=== PATIENT | male | born 1975 | race Two or more races ===

== ENCOUNTER 2017-09-19 11:24 | Emergency (ER) | payer BC, OTHER ==
[2017-09-19 11:44] VITALS: BP 139/91; PULSE 92; TEMP 99.3; BMI 37.0
--- NOTE | 2017-09-19 12:07 | PDOC ---
History of Present Illness - General Chief Complaint: Headache Stated Complaint: HEADACHE Time Seen by Provider: 09/19/17 11:25 History Source: Patient (Patient walked in complaining of headaches since he finished his BP medication 3 days ago. The new one will arrive in a couple of days) Exam Limitations: No Limitations - History of Present Illness Timing/Duration: reports: 24 hours Severity: Yes: moderate Associated Symptoms: reports: denies symptoms Past History - Travel Traveled outside of the country in the last 30 days: No Close contact w/someone who was outside of country & ill: No - Past Medical History Allergies/Adverse Reactions: Allergies Allergy/AdvReac Type Severity Reaction Status Date / Time No Known Allergies Allergy Verified 09/19/17 11:27 Home Medications: Ambulatory Orders Acetaminophen [Tylenol -] 1,000 mg PO ONCE PRN 09/19/17 Lisinopril/Hydrochlorothiazide [Lisinopril-Hctz 20-12.5 mg Tab] 1 each PO AM # 10 tablet 09/19/17 Lisinopril/Hydrochlorothiazide [Lisinopril-Hctz 20-12.5 mg Tab] 1 each PO DAILY 09/19/17 COPD: No HTN: Yes Other medical history: migraine - Suicide/Smoking/Psychosocial Hx Smoking History: Never smoked Have you smoked in the past 12 months: No Information on smoking cessation initiated: No Hx Alcohol Use: No Drug/Substance Use Hx: No Substance Use Type: None Review of Systems - Review of Systems Able to Perform ROS?: Yes Is the patient limited Kiswahili proficient: Yes Constitutional: Yes: See HPI HEENTM: Yes: See HPI Respiratory: No: Symptoms reported, See HPI, Cough, Orthopnea, Shortness of Breath, SOB with Exertion, SOB at Rest, Stridor, Wheezing, Productive cough, Hemoptysis, Other Cardiac (ROS): No: Symptoms Reported, See HPI, Chest Pain, Edema, Irregular Heart Rate, Lightheadedness, Palpitations, Syncope, Chest Tightness, Other ABD/GI: No: Symptoms Reported, See HPI, Abdominal Distended, Abd. Pain w/ defecation, Blood Streaked Bowels, Constipated, Diarrhea, Difficulty Swallowing , Nausea, Poor Appetite, Poor Fluid Intake, Rectal Bleeding, Vomiting, Indigestion, Abdominal cramping, Tarry Stools, Other Neurological: Yes: Symptoms reported, See HPI All Other Systems: Reviewed and Negative *Physical Exam - Vital Signs Last Vital Signs Temp Pulse Resp BP Pulse Ox 99.3 F 92 H 20 139/91 99 09/19/17 11:24 09/19/17 11:24 09/19/17 11:24 09/19/17 11:24 09/19/17 11:24 - Physical Exam General Appearance: Yes: Nourished, Appropriately Dressed, Moderate Distress HEENT: positive: MAXIMILIANO, Normal Voice Neck: positive: Trachea midline, Supple Respiratory/Chest: positive: Lungs Clear, Normal Breath Sounds Cardiovascular: positive: Regular Rate, S1, S2 Lymphatic: negative: Adenopathy Musculoskeletal: positive: Normal Inspection Extremity: positive: Normal Capillary Refill Integumentary: positive: Normal Color, Dry Neurologic: positive: cardiovascular surgeon II-XII NML intact, Fully Oriented, Alert, Normal Mood/ Affect Medical Decision Making - Medical Decision Making Patient seen imediately from arrival, working diagnosis: headache, hypertension non compliance with medication Patient received medication, improvement of symptoms CT head = negative 09/21/17 11:57 09/21/17 11:59 *DC/Admit/Observation/Transfer Diagnosis at time of Disposition: Headache Qualifiers: Headache type: unspecified Headache chronicity pattern: unspecified pattern Intractability: not intractable Qualified Code(s): R51 - Headache Hypertension Qualifiers: Hypertension type: unspecified Qualified Code(s): I10 - Essential (primary) hypertension - Discharge Dispostion Disposition: HOME Condition at time of disposition: Improved - Prescriptions Prescriptions: Lisinopril/Hydrochlorothiazide [Lisinopril-Hctz 20-12.5 mg Tab] 1 each PO AM # 10 tablet - Referrals - Patient Instructions Printed Discharge Instructions: High Blood Pressure, DI for Headache Additional Instructions: Take your medication on daily basis - Post Discharge Activity Forms/Work/School Notes: Back to Work
[2017-09-19] MEDS ORDERED: LISINOPRIL 20 MG TABLET (FP) PO SCH (12:15)
[2017-09-19] MEDS ORDERED: LISINOPRIL 5 MG TABLET (FP) ONE (12:18)
[2017-09-19] MEDS ORDERED: ACETAMINOPHEN 500 MG TABLET (FP) PO ONE (12:58)
[2017-09-19] MEDS ORDERED: ACETAMINOPHEN 325 MG TABLET (FP) ONE (13:01)
[2017-09-19] MEDS ORDERED: IBUPROFEN 600 MG TABLET (FP) PO ONE ×2 (15:48)
== END 2017-09-19 15:52 | disposition home or self-care (01) ==
LOC: FER 11:24
DX: R51 Headache (principal); I10 Essential (primary) hypertension
CPT/HCPCS: 70450-TC; 99281-25

== ENCOUNTER 2019-08-06 14:37 | Emergency (ER) | payer OTHER, BC ==
[2019-08-06 14:44] VITALS: BMI 36.6
[2019-08-06 15:02] VITALS: BP 123/82; PULSE 68; TEMP 98.4
--- NOTE | 2019-08-06 15:02 | PDOC ---
History of Present Illness - General Chief Complaint: Rash Stated Complaint: CLOROX SPILT ON FINGER Time Seen by Provider: 08/06/19 14:46 History Source: Patient Exam Limitations: No Limitations - History of Present Illness Initial Comments: 08/06/19 14:57 HPI 44-year-old male with history of hypertension presenting with chemical burn to his left dorsal aspect of thumb. 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 He immediately washed it with soap and water copiously, applied bacitracin and bandaid. Patient denies any pain or swelling, redness, fevers, discharge, wounds or laceration, paresthesias , numbness or tingling/weakness. Review of Systems Constitutional: no fevers or chills. MUSCULOSKELETAL: No joint pain and swelling. No muscle pain/arthralgias. Back: no back pain SKIN: no redness or skin changes, no discharge, no rash. No wounds. Hematologic: no easy bruising/bleeding. NEUROLOGIC: No weakness, numbness or tingling. Allergic/Immunologic: no allergies All other systems reviewed and negative, or as documented in HPI. Laceration physical template General: NAD, well appearing Vascular: 2+ radialis pulses symmetric and equal. Neuro: distal goggles assembler strength 5/5. sensation grossly intact in median/radial/ ulnar distribution. MSK: soft compartments, Cap refill <2 sec. 2+ radialis pulses bilaterally and symmetric. left thumb IP joint intact, 5/5 strength against resistance. no joint tenderness. FROM. no wound or skin discoloration. Skin: color normal color, warm and well perfused. no skin discoloration, no wound or drainage. 08/06/19 15:02 Past History - Past Medical History Allergies/Adverse Reactions: Allergies Allergy/AdvReac Type Severity Reaction Status Date / Time No Known Allergies Allergy Verified 08/06/19 14:38 Home Medications: Ambulatory Orders Lisinopril/Hydrochlorothiazide [Lisinopril-Hctz 20-12.5 mg Tab] 1 each PO AM # 10 tablet 09/19/17 COPD: No HTN: Yes - Psycho Social/Smoking Cessation Hx Smoking History: Never smoked Have you smoked in the past 12 months: No Hx Alcohol Use: Yes (OCASIONAL) Drug/Substance Use Hx: No Substance Use Type: None *Physical Exam - Vital Signs Last Vital Signs Temp Pulse Resp BP Pulse Ox 98.4 F 68 16 123/82 97 08/06/19 14:38 08/06/19 14:38 08/06/19 14:38 08/06/19 14:38 08/06/19 14:38 Medical Decision Making - Medical Decision Making 08/06/19 15:04 Vital Signs Temp Pulse Resp BP Pulse Ox 98.4 F 68 16 123/82 97 08/06/19 14:38 08/06/19 14:38 08/06/19 14:38 08/06/19 14:38 08/06/19 14:38 Vital signs reviewed within normal limits. Patient presents with a minor chemical burn to his left thumb, no skin lesions or discoloration, neurovascularly intact, not complaining of any pain. Area was carefully evaluated and no findings to suspect infection or significant chemical burn. Patient also had a drop of exposure to Clorox which is diluted alkali substance/ sodium hypochlorite. Will discharge patient in stable condition, wound care instructions, burn care instructions were advised. 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 Monitor for signs of infection including fever/chills, skin changes, wounds, worsening burn , neurologic changes/weakness/paresthesias. Discharge - Discharge Information Problems reviewed: Yes Clinical Impression/Diagnosis: Chemical burn of finger Qualifiers: Encounter type: initial encounter Laterality: left Qualified Code(s): T23.422A - Corrosion of unspecified degree of single left finger (nail) except thumb, initial encounter Condition: Stable Disposition: HOME - Admission No - Follow up/Referral - Patient Discharge Instructions Patient Printed Discharge Instructions: How to Take Care of a Burn, Minor [place] (Alternative Therapy) Additional Instructions: Wound dressed with topical Bacitracin and sterile gauze/bandaid. Follow up with your primary care doctor within 48-72 hours for a wound check. Apply bacitracin or neosporin twice a day with warm soaks and cover with gauze/dressings. Return to ED for suture removal 7 days. Return to the ED for any worsening pain, redness, streaking (red lines), swelling, fever or chills. Keep the wound clean and as dry as possible. Do not immerse or soak the wound in water. This means no swimming, washing dishes (unless thick rubber gloves are used), baths, or hot tubs until the stitches are removed or after about two weeks if absorbable suture material was used. Leave original bandages on the wound for the first 24 hours. After this time, showering or rinsing is recommended, rather than bathing. the first day, remove old bandages and gently cleanse the wound with soap and water. - Post Discharge Activity
== END 2019-08-06 15:06 | disposition home or self-care (01) ==
LOC: FER 14:37
DX: T23.422A Corrosion of unspecified degree of single left finger (nail) except thumb, initial encounter (principal); I10 Essential (primary) hypertension; T54.91XA Toxic effect of unspecified corrosive substance, accidental (unintentional), initial encounter; Y92.89 Other specified places as the place of occurrence of the external cause
CPT/HCPCS: 99281-25

== ENCOUNTER 2019-11-08 13:30 | Emergency (ER) | payer OTHER, BC ==
--- NOTE | 2019-11-08 13:51 | PDOC ---
Attending Attestation - Resident Resident Name: Christian Banks - HPI HPI: 11/08/19 15:23 Pt presents to the ED after a "drop" of 1:10 bleach solution splashed onto his eyelid. Patient washed his eyes in the eyewash station and now states that his eyes feel slightly irritated but has no visual complaints. - Physicial Exam PE: 11/08/19 15:27 Agree with resident exam. Patient is alert and oriented and in no acute distress. Eye exam: 20/25 visual acuity b/l. EOMI. 11/08/19 15:28 11/08/19 15:42 - Medical Decision Making 11/08/19 16:02 Pt presents to the ED after minimal eye exposure to cleaning fluid with bleach. Eyes irrigated. Visual acuity is intact. Will discharge home with instructions to return to the ED for worsening symptoms.
--- NOTE | 2019-11-08 13:53 | PDOC ---
History of Present Illness - General Chief Complaint: Eye Problem Stated Complaint: BLEACH SPILL TO LEFT EYE Time Seen by Provider: 11/08/19 13:51 History Source: Patient Exam Limitations: No Limitations - History of Present Illness Initial Comments: 44 yo M with no pmhx presents to the emergency department after bleach contact to the left eye at approximately 1:30 pm. Per the patient, he states he was cleaning the ultrasound lobby with microkill bleach wipes, which are 1:10 bleach solution (0.65% sodium hypochlorite), when he felt a droplet land on his upper eyelid. He denies feeling it hit his eye. Per the patient, he states he came over to the emergency department and used the eye wash station and is now concerned if he has bleach in contact with his eye. He denies eye pain, visual disturbance, and blurred vision. Denies headaches, nausea, vomiting, and abdominal pain. Past History - Past Medical History Allergies/Adverse Reactions: Allergies Allergy/AdvReac Type Severity Reaction Status Date / Time No Known Allergies Allergy Verified 11/08/19 13:47 Home Medications: Ambulatory Orders Lisinopril/Hydrochlorothiazide [Lisinopril-Hctz 20-12.5 mg Tab] 1 each PO AM #10 tablet 09/19/17 COPD: No HTN: Yes - Psycho Social/Smoking Cessation Hx Smoking History: Never smoked Have you smoked in the past 12 months: No Hx Alcohol Use: No Drug/Substance Use Hx: No Substance Use Type: None Review of Systems - Review of Systems Able to Perform ROS?: Yes Is the patient limited Bermudian proficient: No Constitutional: No: Chills, Diaphoresis, Fever, Weakness HEENTM: No: Eye Pain, Ear Pain, Nose Pain, Throat Pain, Mouth Pain Respiratory: No: Cough, Shortness of Breath, Hemoptysis Cardiac (ROS): No: Chest Pain, Lightheadedness, Palpitations, Chest Tightness ABD/GI: No: Constipated, Diarrhea, Nausea, Rectal Bleeding, Vomiting, Tarry Stools : No: Burning, Dysuria, Hematuria Musculoskeletal: No: Back Pain, Joint Pain, Neck Pain Integumentary: No: Bruising, Erythema, Rash Neurological: No: Headache, Numbness, Tingling Psychiatric: No: Change in Appetite Endocrine: No: Unexplained Weight Loss *Physical Exam - Physical Exam General Appearance: Yes: Nourished, Appropriately Dressed. No: Apparent Distress, Intoxicated, Obese HEENT: positive: EOMI, MAXIMILIANO, Normal Voice, Symmetrical, Pharynx Normal, Hearing Grossly Normal. negative: Pale Conjunctivae, Scleral Icterus (R), Scleral Icterus (L), Muffled/Hoarse voice, Pharyngeal Erythema, Tonsillar Exudate, Tonsillar Erythema, Nasal Congestion, Rhinorrhea, Sinus Tenderness, Excessive drooling Neck: positive: Trachea midline, Supple. negative: Tender, Lymphadenopathy (R), Lymphadenopathy (L), Tender lateral, Tender midline Respiratory/Chest: positive: Lungs Clear, Normal Breath Sounds. negative: Chest Tender, Respiratory Distress, Accessory Muscle Use, Rales, Rhonchi, Stridor Cardiovascular: positive: Regular Rhythm, Regular Rate, S1, S2. negative: Systolic Murmur Gastrointestinal/Abdominal: positive: Normal Bowel Sounds, Flat, Soft. negative: Tender, Distended, Guarding, Rebound, Tenderness Lymphatic: negative: Adenopathy Musculoskeletal: positive: Normal Inspection. negative: CVA Tenderness, Vertebral Tenderness Extremity: positive: Normal Capillary Refill, Normal Inspection, Normal Range of Motion. negative: Tender Integumentary: positive: Normal Color, Dry, Warm Neurologic: positive: de alcholizer II-XII NML intact, Fully Oriented, Alert, Normal Mood/Affect Medical Decision Making - Medical Decision Making 44 yo M with no pmhx presents to the emergency department after bleach contact to the left eye at approximately 1:30 pm. Initial vitals: Initial Vital Signs Temp Pulse Resp BP Pulse Ox 98.1 F 101 H 16 118/71 100 11/08/19 13:30 11/08/19 13:30 11/08/19 13:30 11/08/19 13:30 11/08/19 13:30 Work up: patient has no pain or tenderness to the left eye on visual inspection, no abnormalities noted patient denies pain in the eyes. 20/25 vision noted bilaterally pulse was re-assessed and shown to be 88 bpm. Patient to be discharged with PMD follow up. Discharge - Discharge Information Problems reviewed: Yes Clinical Impression/Diagnosis: Irritation of eyelid Condition: Good Disposition: HOME - Admission No - Follow up/Referral Referrals: Tommy Grider MD [Primary Care Provider] - - Patient Discharge Instructions Patient Printed Discharge Instructions: DI for Chemical Eye Burn Additional Instructions: You were seen in the emergency department for the evaluation of your eye. Please follow up with your primary medical doctor within 1 week after discharge for follow up care and management. Please return to the emergency department if you have worsening symptoms or new concerning symptoms such as inability to see or decreased vision. Thank you. - Post Discharge Activity
[2019-11-08 14:01] VITALS: BP 118/71; PULSE 101; TEMP 98.1; BMI 37.4
== END 2019-11-08 14:52 | disposition home or self-care (01) ==
LOC: FER 13:30
DX: H01.9 Unspecified inflammation of eyelid (principal); I10 Essential (primary) hypertension
CPT/HCPCS: 99281-25

== ENCOUNTER 2022-01-24 08:05 | Emergency (ER) | payer BC ==
[2022-01-24 08:19] VITALS: TEMP 99; BMI 38.2
[2022-01-24 09:14] LABS: HEMATOCRIT 44.4 % (35.4-49); HEMOGLOBIN 15.8 G/dL (11.7-16.9); MCH 30.2 pg (25.7-33.7); MCHC 35.6 g/dl (32.0-35.9); MEAN CELL VOLUME 84.8 fl (80-96); MEAN PLT VOLUME 9.7 fl (7.5-11.1); PLATELET COUNT 218.6 10^3/uL (134-434); RBC 5.23 10^6/uL (4.00-5.60); RDW 13.8 % (11.9-15.9); WHITE BLOOD COUNT 9.2 10^3/uL (4.0-10.8)
[2022-01-24 11:15] LABS: ALBUMIN 3.5 g/dl (3.4-5.0); BLOOD UREA NITROGEN 20.5 mg/dL (7-18); CALCIUM 9.1 mg/dL (8.5-10.1)
[2022-01-24 11:18] LABS: CREATININE 0.9 mg/dL (0.55-1.3)
[2022-01-24 11:20] LABS: BILIRUBIN,TOTAL 0.9 mg/dL (0.2-1); TOT PROT 7.3 g/dl (6.4-8.2)
[2022-01-24 11:35] VITALS: BP 122/70; PULSE 70
[2022-01-24 12:57] LABS: PLATELET ESTIMATE ADEQUATE
== END 2022-01-24 11:36 | disposition home or self-care (01) ==
LOC: FER 08:05
DX: R07.9 Chest pain, unspecified (principal)
CPT/HCPCS: 36415; 80053; 84484; 85025; 93005; 99284-25